=== PATIENT | female | born 1975 | race Caucasian/White ===

== ENCOUNTER → 2017-05-31 | Outpatient (CLI) | payer OTHER | END | disposition home or self-care (01) | LOC: HKI 15:46 | DX: M23.222 Derangement of posterior horn of medial meniscus due to old tear or injury, left knee (principal) | CPT/HCPCS: 73564; 73564-RT ==

== ENCOUNTER → 2017-08-16 | Outpatient (CLI) | payer OTHER | END | disposition home or self-care (01) | LOC: HKI 13:22 | DX: Z01.818 Encounter for other preprocedural examination (principal) | CPT/HCPCS: Z7500 ==

== ENCOUNTER 2017-08-17 05:53 | Day surgery (SDC) | payer OTHER ==
[2017-08-17] MEDS ORDERED: CEFAZOLIN 2 GM/50 ML (PMX) 50 ML IVPB (06:00)
[2017-08-17] MEDS: CELECOXIB 200 MG CAP PO (06:32)
[2017-08-17] MEDS: LANSOPRAZOLE 30 MG CAP PO (06:32)
[2017-08-17] MEDS: DEXAMETHASONE 4 MG/ML 1 ML INJ IV (06:32)
[2017-08-17] MEDS: ACETAMINOPHEN 1000MG/100ML IV 100 ML IVPB (06:32)
[2017-08-17] MEDS: oxyCODONE (CR) 10 MG TAB [oxyCONTIN] PO (06:32)
[2017-08-17] MEDS: ONDANSETRON 4 MG INJ IV (06:32)
[2017-08-17] MEDS ORDERED: MIDAZOLAM 1 MG/ML 2 ML INJ (08:03)
[2017-08-17] MEDS ORDERED: FENTAnyl 50 MCG/ML VIAL (08:03)
[2017-08-17] MEDS ORDERED: PROPOFOL 20 ML (08:04)
[2017-08-17] MEDS ORDERED: LIDOCAINE 2% (SDV) 5 ML INJ (08:19)
[2017-08-17] MEDS ORDERED: CEFAZOLIN 1 GM INJ (08:19)
[2017-08-17] MEDS ORDERED: ONDANSETRON 4 MG INJ (08:24)
[2017-08-17] MEDS ORDERED: METOCLOPRAMIDE 10 MG INJ (08:26)
[2017-08-17] MEDS ORDERED: DEXAMETHASONE 4 MG/ML 1 ML INJ (08:27)
[2017-08-17] MEDS ORDERED: ONDANSETRON 4 MG INJ IV (08:30)
[2017-08-17] MEDS ORDERED: HYDROCODONE/APAP (5/325) TAB PO ×2 (08:30)
[2017-08-17] MEDS: TRIAMCINOLONE ACET 40 MG/ML INJ (08:33)
[2017-08-17] MEDS: LIDOCAINE 1% (MPF) 30 ML INJ (08:33)
[2017-08-17] MEDS ORDERED: HYDROmorphONE (0.2 MG/ML) 10ML SYG IV ×2 (09:30)
[2017-08-17] MEDS ORDERED: FENTAnyl 50 MCG/ML VIAL IV ×2 (09:30)
[2017-08-17] MEDS ORDERED: ACETAMINOPHEN 1000MG/100ML IV 100 ML IVPB (09:30)
== END 2017-08-17 10:50 | disposition home or self-care (01) ==
LOC: SDS 05:53
DX: M23.222 Derangement of posterior horn of medial meniscus due to old tear or injury, left knee (principal)
CPT/HCPCS: 29881

== ENCOUNTER → 2017-08-28 | Outpatient (CLI) | payer OTHER | END | disposition home or self-care (01) | LOC: HKI 13:31 | DX: Z47.89 Encounter for other orthopedic aftercare (principal); S83.242D Other tear of medial meniscus, current injury, left knee, subsequent encounter ==

== ENCOUNTER 2018-04-25 07:05 | Inpatient (IN) | payer OTHER ==
[~2018-04-25 07:05] MED LIST: GLYCOPYRROLATE 0.4 MG INJ; NEOSTIGMINE 3 MG/3 ML SYRINGE
[2018-04-25] MEDS: CEFAZOLIN 2 GM/50 ML (PMX) 50 ML IVPB (08:00)
[2018-04-25] MEDS ORDERED: FENTAnyl 50 MCG/ML VIAL (11:11)
[2018-04-25] MEDS ORDERED: MIDAZOLAM 1 MG/ML 2 ML INJ (11:11)
[2018-04-25] MEDS ORDERED: morphine SULFATE/PF (10 MG/10 ML) INJ (11:13)
[2018-04-25] MEDS: METHYLENE BLUE 1% 10 ML INJ (13:07)
[2018-04-25] MEDS ORDERED: LIDOCAINE 2% (SDV) 5 ML INJ (13:44)
[2018-04-25] MEDS ORDERED: ROCURONIUM 50 MG INJ (13:44)
[2018-04-25] MEDS ORDERED: PROPOFOL 20 ML (13:44)
[2018-04-25] MEDS ORDERED: ONDANSETRON 4 MG INJ (13:44)
[2018-04-25] MEDS ORDERED: METOCLOPRAMIDE 10 MG INJ (13:44)
[2018-04-25] MEDS ORDERED: CEFAZOLIN 1 GM INJ (13:47)
[2018-04-25] MEDS ORDERED: ONDANSETRON INJ 6 MG in DEXTROSE 5% 50 ML IVPB (14:00)
[2018-04-25] MEDS ORDERED: ZOLPIDEM 5 MG TAB PO (14:00)
[2018-04-25] MEDS ORDERED: DIPHENHYDRAMINE 50 MG CAP PO (14:00)
[2018-04-25] MEDS ORDERED: HYDROCODONE/APAP (5/325) TAB PO ×2 (14:00)
[2018-04-25] MEDS ORDERED: BISACODYL (EC) 5 MG TAB PO (14:00)
[2018-04-25] MEDS ORDERED: FENTAnyl 50 MCG/ML VIAL IV (14:30)
[2018-04-25] MEDS ORDERED: HYDROmorphONE 1 MG/5 ML IV SYRINGE IV ×2 (14:30)
[2018-04-25] MEDS ORDERED: MEPERIDINE 25 MG INJ IV (14:30)
[2018-04-25] MEDS ORDERED: NALOXONE (0.4 MG/ML) INJ IV (14:30)
[2018-04-25] MEDS ORDERED: ONDANSETRON 4 MG INJ IV (14:30)
[2018-04-25] MEDS ORDERED: DIPHENHYDRAMINE 50 MG INJ IV (14:30)
[2018-04-25] MEDS ORDERED: METOCLOPRAMIDE 10 MG INJ IV (14:30)
[2018-04-25] MEDS: CEFAZOLIN 1 GM/50 ML (PMX) 50 ML IVPB ×2 (16:51→21:15)
[2018-04-25] MEDS: KETOROLAC 30 MG INJ IV ×2 (16:51→20:42)
[2018-04-25] MEDS: LACTATED RINGER'S 1,000 ML IV ×2 (16:52→23:46)
[2018-04-25] MEDS: METOCLOPRAMIDE 10 MG TAB PO ×2 (18:20→23:46)
[2018-04-26] MEDS: KETOROLAC 30 MG INJ IV ×4 (02:53→20:51)
[2018-04-26 05:10] LABS: ADD MAN DIFF? NO
[2018-04-26 05:14] LABS: BASOPHILS % 0.2 % (0.0-2.0); EOSINOPHILS % 0.1 % (0.0-7.0); HEMATOCRIT 32.5 % (37.0-47.0); HEMOGLOBIN 10.8 g/dl (12.0-16.0); LYMPHOCYTES # 1.9 10^3/ul (0.8-2.9); LYMPHOCYTES % 16.8 % (15.0-51.0); MEAN CORPUSCULAR HEMOGLOBIN 30.5 pg (29.0-33.0); MEAN CORPUSCULAR HGB CONC 33.2 g/dl (32.0-37.0); MEAN CORPUSCULAR VOLUME 91.8 fl (82.0-101.0); MEAN PLATELET VOLUME 10.4 fl (7.4-10.4); MONOCYTE # 0.6 10^3/ul (0.3-0.9); MONOCYTES % 5.8 % (0.0-11.0); NEUTROPHIL # 8.5 10^3/ul (1.6-7.5); NEUTROPHILS % 76.7 % (39.0-77.0); PLATELET COUNT 207 10^3/UL (140-415); RED BLOOD COUNT 3.54 10^6/ul (4.20-5.40); RED CELL DISTRIBUTION WIDTH 12.2 % (11.5-14.5)
[2018-04-26] MEDS: CEFAZOLIN 1 GM/50 ML (PMX) 50 ML IVPB (05:26)
[2018-04-26] MEDS: METOCLOPRAMIDE 10 MG TAB PO ×4 (05:26→23:40)
[2018-04-26 05:59] LABS: ANION GAP 7 (5-13); BLOOD UREA NITROGEN 7 mg/dl (7-20); CARBON DIOXIDE 27 mmol/L (21-31); CHLORIDE 102 mmol/L (97-110); CREATININE 0.61 mg/dl (0.44-1.00); SODIUM 136 mmol/L (135-144)
[2018-04-26] MEDS: BISACODYL (EC) 5 MG TAB PO (13:23)
[2018-04-27] MEDS: KETOROLAC 30 MG INJ IV ×4 (02:04→20:16)
[2018-04-27] MEDS: METOCLOPRAMIDE 10 MG TAB PO ×4 (05:25→23:56)
[2018-04-28] MEDS: METOCLOPRAMIDE 10 MG TAB PO (06:11)
== END 2018-04-28 09:50 | disposition home or self-care (01) | DRG 743 ==
LOC: SDS 07:05 → REC 13:58 → PP2 16:33
PROC: 0UN10ZZ Release Left Ovary, Open Approach (ICD-10-PCS; principal; 2018-04-25 10:30)
PROC: 0WJJ4ZZ Inspection of Pelvic Cavity, Percutaneous Endoscopic Approach (ICD-10-PCS; 2018-04-25 10:30)
PROC: 0UN70ZZ Release Bilateral Fallopian Tubes, Open Approach (ICD-10-PCS; 2018-04-25 10:30)
PROC: 0U940ZZ Drainage of Uterine Supporting Structure, Open Approach (ICD-10-PCS; 2018-04-25 10:30)
PROC: 3E1P78Z Irrigation of Female Reproductive using Irrigating Substance, Via Natural or Artificial Opening (ICD-10-PCS; 2018-04-25 10:30)
DX: N80.1 Endometriosis of ovary (principal); N70.11 Chronic salpingitis; Z53.31 Laparoscopic surgical procedure converted to open procedure; N73.6 Female pelvic peritoneal adhesions (postinfective); N94.89 Other specified conditions associated with female genital organs and menstrual cycle; D25.9 Leiomyoma of uterus, unspecified; N83.8 Other noninflammatory disorders of ovary, fallopian tube and broad ligament
CPT/HCPCS: 80051; 82565; 84520; 84703; 85025; 87070; 87075; 87086